=== PATIENT | female | born 1990 | race Caucasian/White ===

== ENCOUNTER 2019-06-29 08:53 | Outpatient (CLI) | payer BC ==
--- NOTE | 2019-06-29 10:09 | ULT ---
Sonogram right upper quadrant HISTORY: Right upper quadrant pain. FINDINGS: Large amount of non-shadowing echogenic material nearly fills the gallbladder lumen. No sha dowing stones visible. No gallbladder wall thickening or pericholecystic fluid. Patient was reportedly not tender over the g allbladder fossa at the time of the exam. Common duct is 0.5 cm. Liver unremarkable without focal mass or intrahepatic biliary dilatation. IMPRESSION : Large amount of biliary sludge throughout the gallbladder is evidence of chronic gallbladder dyskines is. No evidence of acute biliary obstruction.
--- NOTE | 2019-06-29 17:44 | HP ---
HISTORY OF PRESENT ILLNESS: Te Khan is a 29-year-old female, who developed first onset of right upper quadrant pain on 06/23/2019 and presented to [facility] Emergency Room. Admittedly, this pain was right upper quadrant, flank radiation. Labs done at that time showed a white blood cell count of 12 and hemoglobin of 13. Liver function tests were normal except for minimally elevated transaminases. She was sent home on tramadol and Zofran. The patient had recurrent symptoms and saw Dr. Baum, who performed an ultrasound, revealing gallbladder filled with sludge and normal bile duct caliber. CBC and comp met repeated and were normal on 06/27/2019. The patient reports to my office. With initial onset of pain, the patient had fried Chick-vitor-A and ice cream. Before the last onset of the pain, she had spaghetti. Today at 1:00 prior to this office visit, she had waffles and strawberries without syrup. The patient denies having any pain at this time. After this office visit, the patient called about 5 p.m., stating that she is having vomiting again. She is having right upper quadrant pain. She had not eaten anything today after the waffles. I recommended clear liquids and that she try her tramadol and Zofran that she has and we called in more Zofran for her. I then called her back and asked him to call me directly if this does not resolve or resolves and recurs, that she has intolerable symptoms, at which time we may have to proceed with laparoscopic cholecystectomy. MEDICATIONS: 1. Xyzal daily. 2. Lexapro 10 mg a day. 3. Tramadol daily. 4. Isibloom daily. 5. vitamins daily. 6. Vitamin D daily. Medication list reconciled. PAST MEDICAL HISTORY: Noncontributory. ALLERGIES: SULFA, HIVES. PAST SURGICAL HISTORY: [place] teeth, lingual frenectomy. FAMILY HISTORY: Noncontributory. Her mother did however have colon cancer in her late 30s, diagnosed with hypertension, stroke, mental illness. Siblings, mental illness. Aunt, dystonia. SOCIAL HISTORY: Tobacco, none. Alcohol, rarely. The patient is a mining professionals. She is . REVIEW OF SYSTEMS: Ten-point noncontributory except as noted above. PHYSICAL EXAMINATION: VITAL SIGNS: Weight 183 pounds. Height 64 inches. BMI 31. Blood pressure 116/79, pulse 75, temperature 97 degrees. HEAD, EARS, EYES, NOSE, AND THROAT: Unremarkable. LUNGS: Clear to auscultation. CARDIAC: Regular rate and rhythm without murmur or gallop. ABDOMEN: Soft. Minimal tenderness in right upper quadrant. Negative Wang sign. EXTREMITIES: Unremarkable. No ankle edema. EYES: Sclerae are nonicteric. SKIN: Nonjaundiced. LABORATORY DATA: As noted. Yesterday; normal CBC, comp met, normal lipase. ASSESSMENT AND PLAN: Cholelithiasis, chronic cholecystitis, biliary colic. Her symptoms have in the past been precipitated by fatty meals and ice cream. I have advised her on eating a low-fat, bland diet, and after COVID viral pandemic improved, such that we can do elective operation, we will proceed with laparoscopic cholecystectomy. After this conversation, the patient's called that she had intractable vomiting. She will take Zofran and Maalox and Mylanta as needed. If her vomiting persists and does not resolve, we may have to proceed with laparoscopic cholecystectomy. Risks of infection, bleeding, visceral and biliary injury discussed, questions answered. The patient and family have my cell phone number and will call me. They will call me if there are any concerns this weekend. Job ID: [id number]
== END 2019-06-29 08:54 | disposition home or self-care (01) ==
LOC: BICULT 08:53
PROVIDERS: ATTEND Family Medicine
DX: R10.11 Right upper quadrant pain (principal); K82.8 Other specified diseases of gallbladder
CPT/HCPCS: 76705